=== PATIENT | female | born 2000 | race Caucasian/White ===

== ENCOUNTER 2023-10-17 07:46 | Outpatient (RCR) | payer OTHER, SELFPAY ==
[2023-10-17 13:55] VITALS: BP 104/64; PULSE 64; TEMP 37.1; O2SAT 100
[2023-10-17] MEDS: RHO(D) IMMUNE GLOBULIN 1,500 UNIT SYRINGE 1500 UNIT IM (14:33)
--- NOTE | 2023-10-17 14:51 | PC.NURSE ---
Released ambulatory, no s/s of reaction noted.
== END 2023-10-26 08:45 | disposition home or self-care (01) ==
LOC: LAB 07:46
PROVIDERS: PCP Internal Medicine; Visit Provider Midwife
DX: O26.893 Other specified pregnancy related conditions, third trimester (principal); Z67.91 Unspecified blood type, Rh negative; Z3A.00 Weeks of gestation of pregnancy not specified
CPT/HCPCS: 36415; 86850; 86900; 86901; 96372; J2790

== ENCOUNTER 2024-01-03 22:43 | Inpatient (IN) | payer OTHER, SELFPAY ==
[2024-01-03 23:10] VITALS: BP 115/80; PULSE 94
[2024-01-04] VITALS (33 sets, daily range): BP systolic 64–136; BP diastolic 27–87; PULSE 58–110; TEMP 36.4–36.9
[2024-01-04 00:23] LABS: Bilirubin Urine NEGATIVE (NEGATIVE); Blood Urine NEGATIVE (NEGATIVE); Clarity Urine CLEAR (CLEAR); Color Urine LT. YELLOW (YELLOW); Glucose Urine UA NEGATIVE (NEGATIVE); Ketones Urine TRACE mg/dL (NEGATIVE); Leukocyte Esterase Urine NEGATIVE (NEGATIVE); Nitrite Urine NEGATIVE (NEGATIVE); Protein Urine NEGATIVE (NEG/TRACE); Specific Gravity Urine 1.025 (1.005-1.025); Urine Microscopic Indicated NO; Urobilinogen Urine 0.2 EU/dL (0.2-1.0); pH Urine 6.5 (5.0-9.0)
[2024-01-04 02:07] LABS: Basophils Absolute Auto 0.1 10^3/uL (0.0-0.1); Basophils Percent Auto 0.3 % (0.2-2.0); Eosinophils Percent Auto 0.2 % (0.9-7.0); Hematocrit 41.7 % (36.0-48.0); Hemoglobin 13.9 g/dL (12.0-16.0); Immature Granulocytes Abs Auto 0.15 10^3/uL (0.00-0.03); Immature Granulocytes Pct Auto 0.8 % (0.0-0.5); Lymphocytes Absolute Auto 3.2 10^3/uL (1.2-3.8); Lymphocytes Percent Auto 16.6 % (20.5-60.0); Mean Corpuscular HGB Conc 33.3 g/dL (29.9-35.2); Mean Corpuscular Hemoglobin 32.4 pg (26.7-34.0); Mean Corpuscular Volume 97.2 fL (81.0-99.0); Mean Platelet Volume 10.3 fL (9.5-13.5); Monocytes Absolute Auto 0.8 10^3/uL (0.3-0.8); Monocytes Percent Auto 4.4 % (1.7-12.0); Neutrophils Percent Auto 77.7 % (43.0-75.0); Platelet Count 284 10^3/uL (150-450); Red Blood Count 4.29 10^6/uL (4.20-5.40); Red Cell Distribution Width 13.9 % (11.0-15.0); White Blood Count 19.2 10^3/uL (4.0-11.0)
[2024-01-04] MEDS: NALBUPHINE HCL 10 MG/ML AMPULE IV (02:19)
[2024-01-04] MEDS: LACTATED RINGER'S SOLUTION 1,000 ML 1000 ML IV (05:35)
[2024-01-04] MEDS: LACTATED RINGER'S SOLUTION 1,000 ML 125 ML IV (06:30)
[2024-01-04] MEDS: ROPIVACAINE HCL/PF 400 MG/200 ML PREMIX 10 MG EPIDURAL (06:37)
[2024-01-04 08:47] LABS: Amphetamine Screen Urine NEGATIVE (NEGATIVE); Barbiturates Screen Urine NEGATIVE (NEGATIVE); Benzodiazepines Screen Urine NEGATIVE (NEGATIVE); Buprenorphine Screen Urine NEGATIVE (NEGATIVE); Cannabinoid Screen Urine NEGATIVE (NEGATIVE); Cocaine Screen Urine NEGATIVE (NEGATIVE); Methadone Screen Urine NEGATIVE (NEGATIVE); Methamphetamines Screen Urine NEGATIVE (NEGATIVE); Opiate Screen Urine NEGATIVE (NEGATIVE); Oxycodone Screen Urine NEGATIVE (NEGATIVE); Phencyclidine Screen Urine NEGATIVE (NEGATIVE); Tricyclic Antidepressant Urine NEGATIVE (NEGATIVE)
--- NOTE | 2024-01-04 08:51 | P.OBHP_ITS ---
OB - H&P: HPI History of Present Illness Chief complaint: CONTRACTIONS 01-09-24 : 1 Para: 0 Gestational age based on last menstrual period: 39.2 History of Present Dating criteria: LMP confirmed by 1st trimester US care: good care Ultrasounds: normal 1st trimester US and normal mid trimester US Labs Blood type: A (-) negative Rubella: immune RPR/VDLR: nonreactive GBS status: negative HBsAG: negative Review of Systems ROS Status of ROS: 10 or more systems reviewed and unremarkable except as noted in history and below Meds Home Medications and Allergies Home Medications ?Medication ?Instructions ?Recorded ?Confirmed ?Type No Known Home Medications 01/04/24 01/04/24 History Allergies Allergy/AdvReac Type Severity Reaction Status Date / Time No Known Drug Allergies Allergy Verified 01/04/24 02:04 Exam Constitutional Vital Signs, click to edit/add: Last Vital Signs Temp 98.1 F 01/04/24 06:00 Pulse 80 01/04/24 08:43 Resp 16 01/04/24 06:00 BP 116/70 01/04/24 08:43 O2 Del Method Room Air 01/04/24 06:00 Common normals: no apparent distress and oriented x3 Exam limitations: altered mental status General appearance: cooperative and comfortable Orientation/consciousness: Yes awake, Yes oriented to person, Yes oriented to place and Yes oriented to time HENMT Common normals: normocephalic Eye Common normals: EOMs intact bilaterally General eye: normal appearance of both eyes Neck & C-Spine Common normals: full ROM and no lymphadenopathy General: normal visual inspection Lymph Lymphatic: no lymphadenopathy noted Chest Common normals: inspection of chest normal Respiratory Common normals: normal respiratory effort Effort & inspection: able to speak in complete sentences Cardio Common normals: regular rate and regular rhythm Rate: regular rate Rhythm: regular rhythm GI Common normals: Normal to inspection, nondistended, normoactive bowel sounds present Inspection: normal to inspection Auscultation: normoactive bowel sounds Percussion: normal to percussion Common normals: no CVA tenderness Back & Pelvis Common normals: no CVA tenderness Thoracic spine/upper back: normal to inspection Extremity Common normals: normal to inspection General: normal exam except as noted Neuro Common normals: oriented x3 Sensorium/orientation: awake, alert and oriented to person Speech: speech normal Psych Common normals: mental status grossly normal Attitude: calm Results Labs Labs: Short CBC 01/04/24 Range/Units 01:51 WBC 19.2 H (4.0-11.0) 10^3/uL Hgb 13.9 (12.0-16.0) g/dL Hct 41.7 (36.0-48.0) % Plt Count 284 (150-450) 10^3/uL Urine 01/03/24 Range/Units 23:00 Urine Color Lt. yellow (YELLOW) Urine Clarity Clear (CLEAR) Urine pH 6.5 (5.0-9.0) Ur Specific [place] 1.025 (1.005-1.025) Urine Protein Negative (NEG/TRACE) mg/dL Urine Glucose (UA) Negative (NEGATIVE) mg/dL OB - A/P Assessment and Plan (1) Term : Urinary Catheter Management Urinary Catheter Management Straight: Cath placed during this visit: yes Urethral indwelling: No Insertion date: 01/04/24 Insertion time: 07:50
[2024-01-04] MEDS: LIDOCAINE VISCOUS 2% 15 ML SOLUTION 5 ML TOPICAL (09:00)
[2024-01-04] MEDS: OXYTOCIN/0.9 % SODIUM CHLORIDE 20 UNITS/1,000 ML PLAST..BAG 125 UNIT IV (09:29)
--- NOTE | 2024-01-04 09:47 | PM.OBPRCVD ---
Procedure Induction method: none Delivery monitor: external FHT and external uterine Route of delivery: Episiotomy Description: none L&D Laceration Description: perineal - 1st degree and labial (bilateral labial repair ) Delivery repair: Vicryl Estimated blood loss (mL): 300 Anesthesia type: Epidural Disposition: floor Infant Gender: female presentation: vertex Placental delivery description: Spontaneous cord description: 3 Vessels heart rate - 1 minute: 100 bpm or Greater respiratory effort - 1 minute: Spontaneous/Strong Cry muscle tone - 1 minute: Active Movement reflex response - 1 minute: Prompt Response color - 1 minute: Bluish Hands or Feet total score - 1 minute: 9 heart rate - 5 minute: 100 bpm or Greater respiratory effort - 5 minute: Spontaneous/Strong Cry muscle tone - 5 minute: Active Movement reflex response - 5 minute: Prompt Response color - 5 minute: Bluish Hands or Feet total score - 5 minute: 9
[2024-01-04 10:15] LABS: Hematocrit 36.4 % (36.0-48.0); Hemoglobin 12.3 g/dL (12.0-16.0); Mean Corpuscular HGB Conc 33.8 g/dL (29.9-35.2); Mean Corpuscular Hemoglobin 32.6 pg (26.7-34.0); Mean Corpuscular Volume 96.6 fL (81.0-99.0); Platelet Count 255 10^3/uL (150-450); Red Blood Count 3.77 10^6/uL (4.20-5.40); Red Cell Distribution Width 13.7 % (11.0-15.0); White Blood Count 23.5 10^3/uL (4.0-11.0)
[2024-01-04] MEDS: BENZOCAINE/MENTHOL 85 GRAM SPRAY BOTTLE 1 APPLIC TOPICAL (11:41)
[2024-01-04] MEDS: GLYCERIN/WITCH HAZEL PADS 1 PAD TOPICAL (11:41)
[2024-01-04] MEDS: IBUPROFEN 400 MG TABLET 800 MG PO ×2 (11:41→19:34)
[2024-01-04 14:31] LABS: Band Neutrophils Absolute 0.5 10^3/uL (0.0-0.3); Metamyelocytes Absolute Manual 0.23; Monocytes Absolute Manual 0.94 10^3/uL (0.30-0.80); Segmented Neut Absolute Manual 21.15 10^3/uL (1.4-6.5)
[2024-01-05] MEDS: IBUPROFEN 400 MG TABLET 800 MG PO (05:46)
[2024-01-05 07:45] VITALS: TEMP 36.4
[2024-01-05 08:19] VITALS: BP 113/57; PULSE 77
--- NOTE | 2024-01-05 09:10 | PM.OBPN ---
OB - PN: Subj Subjective Patient comments: no complaints and pain well controlled [place] status: doing well Exam Constitutional Vital Signs, click to edit/add: Last Vital Signs Temp 97.5 F L 01/04/24 23:29 Pulse 77 01/05/24 08:19 Resp 16 01/04/24 23:29 BP 113/57 01/05/24 08:19 O2 Del Method Room Air 01/04/24 23:29 Documenting provider has reviewed patient's vital signs: yes Common normals: no apparent distress Respiratory Common normals: normal respiratory effort and clear to auscultation bilaterally Cardio Common normals: regular rate and regular rhythm GI Common normals: Normal to inspection, nondistended, normoactive bowel sounds present Extremity Common normals: normal to inspection and no clubbing, cyanosis or edema Results Labs Labs: Short CBC 01/04/24 Range/Units 10:05 WBC 23.5 H (4.0-11.0) 10^3/uL Hgb 12.3 (12.0-16.0) g/dL Hct 36.4 (36.0-48.0) % Plt Count 255 (150-450) 10^3/uL Urinary Catheter Management Urinary Catheter Management Straight: Cath placed during this visit: yes Urethral indwelling: No Insertion date: 01/04/24 Insertion time: 07:50 OB - PN: A/P Assessment and Plan (1) Term : Plan - Vaginal Delivery day: 1 Plan: routine care, discharge home and follow up 6 weeks Time Spent with Patient Time: Total time spent is greater than 50% in coordination of care (as documented) at patient's floor/unit and/or counseling patient: Total time spent with greater than 50% in coordination of care (as documented) at patient's floor/unit and/or counseling patient: less than 15 minutes
[2024-01-05] MEDS: DOCUSATE SODIUM 100 MG CAPSULE PO (10:06)
== END 2024-01-05 14:05 | disposition home or self-care (01) | DRG 807 ==
PROVIDERS: Admitting Provider Midwife; PCP Internal Medicine; Visit Provider Midwife
DX: O26.893 Other specified pregnancy related conditions, third trimester (principal); Z37.0 Single live birth; Z67.11 Type A blood, Rh negative; O70.0 First degree perineal laceration during delivery; Z3A.39 39 weeks gestation of pregnancy
CPT/HCPCS: 36415; 51701; 59025; 59050; 59410; 80307; 81003; 85007; 85025; 85027; 86850; 86900; 86901; 96374; 96375; J2300; J2795

== ENCOUNTER 2024-01-07 08:20 | Outpatient (OUT) | payer OTHER, SELFPAY ==
--- OUTSIDE RECORDS SUMMARY | 2024-01-07 08:25 | XMS_ITS | CCD ---
Author Organization [facility] Care Team Providers Care Finance Advisor Name Role Phone JAHAIRA, REGIS Unavailable Unavailable JAHAIRA, REGIS Unavailable Unavailable TJ SANDERS Unavailable Unavailable JAHAIRA, REGIS Unavailable Unavailable Tj Sanders MD Primary Care Provider jT Sanders MD Primary Care Provider [phone] TJ SANDERS Attending Unavailable TJ SANDERS Referring Unavailable TJ SANDERS Primary Care Unavailable FLORO, NIKKY L Attending Unavailable FLORO, NIKKY L Referring Unavailable FLORO, NIKKY L Attending Unavailable FLORO, NIKKY L Attending Unavailable FLORO, NIKKY L Referring Unavailable FLORO, NIKKY L Attending Unavailable FLORO, NIKKY L Attending Unavailable FLORO, NIKKY L Attending Unavailable FLORO, NIKKY L Referring Unavailable FLORO, NIKKY L Attending Unavailable FLORO, NIKKY L Attending Unavailable FLORO, NIKKY L Attending Unavailable FLORO, NIKKY L Attending Unavailable FLORO, NIKKY L Referring Unavailable FLORO, NIKKY L Attending Unavailable FLORO, NIKKY L Attending Unavailable FLORO, NIKKY L Referring Unavailable Medications Current Medications Medication Drug Class(es) Dates Sig (Normalized) Sig (Original) aluminum chloride 200 mg/ml topical solution (2 sources) Start: 01-11-2023 End: 06-22-2023 aluminum chloride (DRYSOL) 20 % external solution Indications: Hyperhidrosis Apply 1 Application topically nightly. 60 mL 1 06/22/2023 Active MV & Min w/FA-DHA ( Gummies) 0.18-25 MG chewable tablet (3 sources) MV & Mi n w/FA-DHA ( Gummies) 0.18-25 MG chewable tablet Chew 0 Active Problems Active Problems Problem Classification Problem Date Documented Da te Episodic/Chronic Other and delivery including normal (2 sources) test positive; Translations: [Encounter for test, result positive] 05-31-2023 Episodic Other skin disorders (1 source) Hyperhidrosis; Translations: [Generalized hyperhidrosis] 06-22-2023 Episodic Other skin disorders (1 source) Other hypertrophic disorders of the skin; Translations: [Other hypertrophic disorders of the skin] Onset: 10-26-2023 Episodic Unclassified (1 source) moles on right side of neck Onset: 10-26-2023 Past or Other Problems Problem Classification Problem Date Documented Da te Episodic/Chronic Allergic reactions (4 sources) Urticaria, unspecified; Translations: [Allergic urticaria] Onset: 12-25-2016 Episodic Mood disorders (1 source) Mood disorders Onset: 01-11-2023 01-11-2023 NEGATED: Highlighted row has been ruled out!Unclassified (1 source) No known active problems 12-21-2020 Results Test Name Value Interpretation Reference Range Facility US OB FOLLOW UP TRANSABDOMIN AL APPROACHon 01-01-2024 US OB FOLLOW UP TRANSABDOMINAL APPROACH TITLE OF EXAM: US - US OB FOLLOWUP PER FETUS REASON FOR EXAM: Growth TECHNIQUE: Grayscale, color, and M-mode Doppler sonographic evaluation of the fetus and maternal pelvis. COMPARISON: None. FINDINGS: LMP: 04/05/2023 Age by LMP: 38 weeks, 5 days Estimated date of delivery by LMP: 01/10/2024 Single live intrauterine gestation in cephalic position measuring 37 weeks, 1 day by ultrasound. No appreciable sonographic abnormality of the visualized structures. An anatomic survey was not performed. heart rate: 136 bpm Biparietal diameter: 9.2 cm, 37 weeks, 2 days (41%) Abdominal circumference: 32 cm, 35 weeks, 6 days (6%) Head circumference: 33.4 cm, 38 weeks, 2 days (24.5%) Femur length: 7.1 cm, 36 weeks, 4 days (9 %). Estimated weight: 3011 g (6 pounds, 10 ounces) (20.6%) Amniotic fluid index 10.6 cm, 26% Posteriorly positioned, left-sided placenta without evidence of previa on the provided images. Placental grade 3. Cervical length 4.3 cm. IMPRESSION: 1. Single live intrauterine gestation sonographically measuring 37 weeks, 1 day. 2. No appreciable abnormality of the evaluated and maternal structures. Findings as detailed. DICTATED ON: 01/01/2024 4:21 PM This report has been electronically signed and approved by the interpreting radiologist. Electronically Signed Trev Durand M.D. 2024-01-01 16:28:17 Normal Not Available US OB FOLLOW UP TRANSABDOMIN AL APPROACHon 10-30-2023 US OB FOLLOW UP TRANSABDOMINAL APPROACH FINDINGS: A single, live intrauterine is present with normal cardiac rate of 143 beats per minute. Normal activity and amniotic fluid volume. Amniotic fluid index is 14 cm. Morphology is grossly normal. The cervix is long and closed, 4.9 cm. The placenta is fundal, not associated with the cervical os. The current sonographic age is 29 weeks and 4 days, based on the following measurements: BPD 7.5 cm (30 weeks, 0 days) Head Circumference 27.2 cm (29 weeks, 5 days) Abdominal Circumference 24.9 cm (29 weeks, 1 day) Femur Length 5.5 cm (29 weeks, 1 day) Presentation Cephalic Placenta Fundal Grade I Weight (g) by Percentile 20.1 % * These measurements result in an estimated date of delivery of January 11, 2024. The current estimated weight is 1361 grams (3 pounds, 0 ounces). IMPRESSION: Single, live intrauterine , current sonographic age of 29 weeks and 4 days, with an estimated date of delivery of January 11, 2024 * Estimated Weight (g) by Percentile is based upon an accurate estimated age based on last menstrual period. TRANSCRIBED BY: ELECTRONICALLY SIGNED BY: Logan Hayward MD Normal Not Available US OB 14+ WEEKS ANATOMY SCAN on 08-23-2023 US OB 14+ WEEKS ANATOMY SCAN FINDINGS: Single live intrauterine . heart rate 147 bpm. somatic movement identified. Cephalic position. Posterior grade 1 placenta. ADONIS 13.46 cm. Cervical length 3.2 cm. Lateral ventricles, posterior fossa, four-chamber heart, stomach, kidneys, three-vessel cord and cord insertion, urinary bladder, long bones, diaphragm, cervical, thoracic, and lumbar spine identified. Estimated sonographic gestational age 19 weeks, 6 days. Gestational age by dates 20 weeks, 1 day. Sonographic estimated date of delivery January 11, 2024. Estimated weight 321 g (33.4% by LMP percentile). BPD 4.51 cm. HC 17.62 cm. FL 3.10 cm. AC 14.92 cm. IMPRESSION: Single live intrauterine with estimated sonographic gestational age 19 weeks, 6 days. Estimated weight 321 g. ELECTRONICALLY SIGNED BY: Angel Luis Atwood MD Normal Not Available Bacteria identified Cx Nom ( U)on 06-02-2023 Appearance (U) Adequate [facility] Bacteria identified Cx Nom (Isol) SEE NOTE [facility] Comment on above: No Growth Internal identifier for Provider [id number] [facility] Specimen source Nom (Unsp spec) URINE [facility] STATUS FINAL [facility] CBC panel Auto (Bld)on 06-02 Erythrocyte distribution width (RBC) [Ratio] 12.3 % 11.0 - 15.0 % [facility] Hematocrit (Bld) [Volume fraction] 38.4 % 35.0 - 45.0 % [facility] Hemoglobin (Bld) [Mass/Vol] 12.9 g/dL 11.7 - 15.5 g/dL [facility] Interpretation and review of laboratory results Abnormal [facility] MCH (RBC) [Entitic mass] 31.9 pg 27. 0 - 33.0 pg [facility] MCHC (RBC) [Mass/Vol] 33.6 g/dL 32.0 - 36.0 g/dL [facility] MCV (RBC) [Entitic vol] 95.0 fL 80.0 - 100.0 fL [facility] Platelet mean volume (Bld) [Entitic vol] 10.1 fL 7.5 - 12.5 fL [facility] Platelets (Bld) [#/Vol] 300 10*3/uL [facility] RBC (Bld) [#/Vol] 4.04 10*6/uL [facility] WBC (Bld) [#/Vol] 12.4 10*3/uL High [facility] Laboratory - Blood bankon ABO group Nom (Bld) A [facility] Blood group antibody screen Ql Detected [facility] Comment on above: Reference range No antibodies detected This assay is a screening test for the detection of red blood cell antibodies. The test is not to be used for pretransfusion screening or for the medical management of an alloimmunized . Rh Nom (Bld) Negative [facility] Comment on above: For additional information, please refer to http://education.Bottle/faq/TZM897 (This link is being provided for informational/ educational purposes only.) Laboratory - Chemistry and C hemistry - challengeon 06-02-2023 TSH Qn 0.65 m[IU]/L mIU/L [facility] Comment on above: Reference Range > or = 20 Years 0.40-4.50 Ranges First trimester 0.26-2.66 Second trimester 0.55-2.73 Third trimester 0.43-2.91 Laboratory - Drug toxicology on 06-02-2023 8-Iletjipxmz-4,5-Dimethy l-3,3-Diphenylpyrrolidin e (EDDP) Ql (U) Negative NINF - 100 ng/mL [facility] Amphetamines Ql (U) Negative NINF - 5 00 ng/mL [facility] Barbiturates Ql (U) Negative NINF - 3 00 ng/mL [facility] Benzodiazepines Ql (U) Negative NINF - 100 ng/mL [facility] Benzoylecgonine Ql (U) Negative NINF - 150 ng/mL [facility] Opiates Ql (U) Negative NINF - 100 ng/mL [facility] oxyCODONE Ql (U) Negative NINF - 100 ng/mL [facility] Phencyclidine Ql (U) Negative NINF - 25 ng/mL [facility] Tetrahydrocannabinol (U) [Mass/Vol] 238 ng/mL High NINF - 5 ng/mL [facility] Comment on above: See Note 1 Tetrahydrocannabinol Screen method >20 ng/mL Ql (U) Positive Abnormal NINF - 20 ng/mL [facility] Comment on above: Marijuana Metabolite detected is consistent with exposure to Marijuana (THC) and/or hemp derived products. Some jurisdictions do not include hemp within the definition of Marijuana. Laboratory - Hematology and Cell countson 06-02-2023 HbA1c (Bld) [Mass fraction] 5.3 % [facility] Comment on above: For the purpose of s creening for the presence of diabetes: <5.7% Consistent with the absence of diabetes 5.7-6.4% Consistent with increased risk for diabetes (prediabetes) > or =6.5% Consistent with diabetes This assay result is consistent with a decreased risk of diabetes. Currently, no consensus exists regarding use of hemoglobin A1c for diagnosis of diabetes in children. According to [place] [employer] (ADA) guidelines, hemoglobin A1c <7.0% represents optimal control in non- diabetic patients. Different metrics may apply to specific patient populations. Standards of Medical Care in Diabetes(ADA). Laboratory - Microbiology an d Antimicrobial susceptibilityon 06-02-2023 HBV surface Ag IA Ql Non-Reactive NON-REACTIVE [facility] Comment on above: For additional information, please refer to http://School of Rock.RVX/faq/QCT646 (This link is being provided for informational/ educational purposes only.) HCV Ab IA Ql Non-Reactive NON-REACTIVE [facility] Comment on above: HCV antibody was non-reactive. There is no laboratory evidence of HCV infection. In most cases, no further action is required. However, if recent HCV exposure is suspected, a test for HCV RNA (test code 37711) is suggested. For additional information please refer to http://education.RVX/faq/VAR11y6 (This link is being provided for informational/ educational purposes only.) HIV 1+2 Ab+HIV1 p24 Ag IA Ql Non-Reactive NON-REACTIVE [facility] Comment on above: HIV-1 antigen and HI V-1/HIV-2 antibodies were not detected. There is no laboratory evidence of HIV infection. PLEASE NOTE: This information has been disclosed to you from records whose confidentiality may be protected by state law. If your state requires such protection, then the state law prohibits you from making any further disclosure of the information without the specific written consent of the person to whom it pertains, or as otherwise permitted by law. A general authorization for the release of medical or other information is NOT sufficient for this purpose. For additional information please refer to http://School of Rock.RVX/faq/IFQ942 (This link is being provided for informational/ educational purposes only.) The performance of this assay has not been clinically validated in patients less than 2 years old. Reagin Ab RPR Ql (S) Non-Reactive NON-REACTIVE [facility] Rubella virus IgG Qn (S) 4.08 [IU]/mL Index [facility] Comment on above: Index Interpretation ----- <0.90 Not consistent with immunity 0.90-0.99 Equivocal > or = 1.00 Consistent with immunity The presence of rubella IgG antibody suggests immunization or past or current infection with rubella virus. Laboratory - Urinalysison Bacteria LM.HPF (Urine sed) [#/Area] NONE SEEN NONE SEEN /HPF [facility] Epithelial cells.squamous LM.HPF (Urine sed) [#/Area] 6-10 Abnormal < OR = 5 /HPF [facility] Hyaline casts (Urine sed) [#/Area] NONE SEEN NONE SEEN /LPF [facility] RBC LM.HPF (Urine sed) [#/Area] NONE SEEN < OR = 2 /HPF [facility] WBC LM.HPF (Urine sed) [#/Area] NONE SEEN < OR = 5 /HPF [facility] N. gonorrhoeae DNA MAK+probe Ql (Cervical mucus)on 06-02-2023 C. trachomatis rRNA MAK+probe Ql (Unsp spec) Not detected NOT DETECTED [facility] N. gonorrhoeae rRNA MAK+probe Ql (Unsp spec) Not detected NOT DETECTED [facility] No Panel Informationon 06-02 MULTIPLE COLLECTION TIMES FOR SAME TEST TYPE. [employer] Organization Information Site ID: QPT Name: [facility] Address: [address] [place] [address], [address] [place] [id number] Director: George Martinez MD [facility] (ALWAYS MESSAGE) [facility] Comment on above: See Note 2 Note 1 This test was developed and its analytical performance characteristics have been determined by [employer]. It has not been cleared or approved by the FDA. This assay has been validated pursuant to the CLIA regulations and is used for clinical purposes. Note 2 This drug testing is for medical treatment only. Analysis was performed as non-forensic testing and these results should be used only by healthcare providers to render diagnosis or treatment, or to monitor progress of medical conditions. For assistance with interpreting these drug results, please contact a [employer] Toxicology Specialist: [phone] ( ), M-F, 8am-6pm EST. The analytical perfo rmance characteristics of this assay, when used to test SurePath(TM) specimens have been determined by [employer]. The modifications have not been cleared or approved by the FDA. This assay has been validated pursuant to the CLIA regulations and is used for clinical purposes. For additional information, please refer to https://education.RVX/faq/XLR267 (This link is being provided for information/ educational purposes only.) Interpretation and review of laboratory results Abnormal [facility] SPLIT 05/31/2023 FROM [id number] [employer] Organization Information Site ID: QPT Name: [facility] Address: [address] [place] [address], [address] [place] [phone] Director: George Martinez MD [facility] US OB < 14 WEEKS EARLYon US OB < 14 WEEKS EARLY CLINICAL HISTORY: Amenorrhea. Dates from LMP of 8 weeks 1 day COMPARISON: 05/15/2023. TECHNIQUE: Transabdominal and transvaginal ultrasound was performed of the pelvis. RESULT: An approximately 2.7 cm in average dimension gestational sac is present within the central aspect of the uterine body/fundus, without significant surrounding subchorionic hemorrhage. [place] rump length measures 1.58, which corresponds to 8 weeks 0 days. Yolk sac present. The estimated date of delivery by measurements is: 01/10/2024. The estimated date of delivery by LMP is: 01/09/2024. cardiac activity measures approximately 151, without visualized arrhythmia. The cervix appears closed, measuring approximately 4.0 cm. There is no significant free fluid, or other findings of concern. The uterus measures: 10.1 x 6.9 x 5.2 cm. The right ovary measures: 2.9 x 2.1 x 1.8 cm. The left ovary is not visualized secondary to bowel gas. IMPRESSION: SINGLE LIVE INTRAUTERINE CORRESPONDING TO 8 weeks 0 days NO OTHER FINDINGS OF CONCERN. ELECTRONICALLY SIGNED BY: Shamar Mobley MD Normal Not Available US OB < 14 WEEKS EARLYon US OB < 14 WEEKS EARLY US OB < 14 WEEKS EARLY : 05/15/2023 9:45 AM CLINICAL HISTORY: . COMPARISON: None available. TECHNIQUE: ROUTINE FINDINGS: The uterus measures 8.3 x 4.7 x 4.1 cm. A gestational sac contains a yolk sac in the endometrial cavity in the fundal region that measures 0.27 cm.. No pole or heart rate visualized on this examination. The cervix measures 3.7 cm A hypoechoic area is seen in the uterus adjacent to the gestational sac that measures 1.02 x 1.2 x 0.4 cm. The right ovary is not visualized. The left ovary measures 2.6 x 2.7 x 2.4 cm. It contains an anechoic area that measures 0.8 x 1.1 x 0.6 cm. This is a probable corpus luteal cyst. IMPRESSION: A gestational sac is seen with a yolk sac but no pole or heart rate visualized. This is thought to be too early for detection. Recommend follow-up in 10 to 14 days. Subchorionic hemorrhage is seen adjacent to the gestational sac. ELECTRONICALLY SIGNED BY: Estuardo Ortiz, DO Normal Not Available Vital Signs Date Time Vital Sign Value Performing Clinician Faci lity 05-31-2023 09:45-0500 Body mass index (BMI) [Ratio] 21.43 kg/m2 Nikky Candio [facility] Work Phone: [facility] 05-31-2023 09:45-0500 Body weight 54.88 kg Nikkymykel Christophero [facility] Work Phone: [facility] 05-31-2023 09:45-0500 Diastolic blood pressure 70 mm[Hg] Nikky Candio [facility] Work Phone: [facility] 05-31-2023 09:45-0500 Systolic blood pressure 120 mm[Hg] Nikky Floro [facility] Work Phone: [facility] Encounters Encounter Date Encounter Type Care Provider Facility Start: 01-02-2024 ambulatory NIKKY L FLORO Not [facility] Start: 01-01-2024 ambulatory NIKKY L FLORO Not [facility] Start: 12-27-2023 End: 12-27-2023 ambulatory NIKKY L FLORO Not Available Start: 12-17-2023 End: 12-17-2023 ambulatory NIKKY L FLORO Not Available Start: 12-04-2023 End: 12-04-2023 ambulatory NIKKY L FLORO Not Available Start: 11-15-2023 End: 11-15-2023 ambulatory NIKKY L FLORO Not Available Start: 10-30-2023 End: 10-30-2023 ambulatory NIKKY L FLORO Not Available Start: 10-26-2023 End: 10-26-2023 ambulatory [facility] Start: 10-17-2023 End: 10-17-2023 ambulatory NIKKY L FLORO Not Available Start: 09-27-2023 End: 09-27-2023 ambulatory NIKKY L FLORO Not Available Start: 08-30-2023 End: 08-30-2023 ambulatory NIKKY L FLORO Not Available Start: 08-23-2023 End: 08-23-2023 ambulatory NIKKY L FLORO Not Available Start: 08-01-2023 End: 08-01-2023 ambulatory NIKKY L FLORO Not Available Start: 07-02-2023 Telephone encounter Nikky L Floro CNM Work Phone: [facility] Start: 06-28-2023 End: 06-28-2023 ambulatory NIKKY L FLORO Not Available Start: 06-22-2023 Refill Tiesha Pearson [employer]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 [facility] Comment on above: Hyperhidrosis Start: 05-31-2023 End: 05-31-2023 ambulatory NIKKY L FLORO Not Available Start: 05-31-2023 End: 05-31-2023 Initial care visit Nikky L Floro CNM Work Phone: [facility] Comment on above: GA: 8w1d Start: 05-15-2023 End: 05-15-2023 ambulatory NIKKY L FLORO Not Available Start: 12-25-2016 End: 12-25-2016 [facility]: Procedures Date Procedure Procedure Detail Performing Clinician Start: 05-31-2023 Culture bacterial quanttative colony count urine Nikky L Floro CNM Work Phone: Start: 05-31-2023 DRUG TOX MONITORIGN 6 W/ CONF,URINE Nikky L Floro CNM Work Phone: Start: 05-31-2023 URINALYSIS MICROSCOPIC Nikky Humphrey CN Work Phone: Start: 05-31-2023 Antibody screen rbc each serum technique Nikky Humphrey CN Work Phone: Start: 05-31-2023 Hemoglobin glycosyla emma a1c Nikky Humphrey [facility] Work Phone: Start: 05-31-2023 Iaad ia hepatitis b surface antigen Nikky Humphrey [facility] Work Phone: Start: 05-31-2023 TSH W/REFLEX TO FT4 Shakira mykel Humphrey CN Work Phone: Start: 01-11-2023 Adult depression scr eening assessment Tiesha Pearson CMA Plan of Treatment Date Care Activity Detail Author Start: 01-12-2024 Adult BMI Screening Adult BMI Screen ing [facility] Start: 01-12-2024 Depression Screening Depression Scre ening [facility] Start: 01-12-2024 Tobacco Screening Tobacco Screening [facility] Start: 09-06-2023 DTaP,Tdap and Td Vaccines (7 - Td or Tdap) DTaP,Tdap and Td Vaccines (7 - Td or Tdap) [facility] Start: 09-05-2023 End: 09-05-2023 Patient encounter procedure 09/05/2023 11:00 AM EDT Office Visit [facility] [address] [facility] [address] [place] [id number] Theo Orta, DO [address] [facility] [place] [address] [facility] Start: 07-26-2023 End: 07-26-2023 Patient encounter procedure 07/26/2023 8:30 AM EST Routine [facility] [address] [place] [address] Nikky Humphrey CNM [address] [place] [address] [facility] Start: 05-31-2023 End: 05-31-2024 Neisseria gonorrhoeae DNA [Presence] in Cervical mucus by MAK with probe detection C. trachomatis / N. gonorrhoeae, DNA probe Lab Routine examination or test, positive result Expected: 05/31/2023 (Approximate), Expires: 05/31/2024 [facility] Work Phone: Comment on above: Expected: 05/31/2023 (Approximate), Expires: 05/31/2024 Start: 01-26-2023 Influenza vaccination Influenza Vacc ine [facility] Start: 04-29-2022 Screening for Chlamy diana trachomatis Chlamydia Screening [facility] Start: 2022 Screening for malign ant neoplasm of cervix Pap Smear [facility] Immunizations Immunization Date Immunization Notes Care Provider Fa cility 04-29-2021 RHO(D) immune globul in- IV or IM Tiesha Pearson [facility] 09-05-2013 tetanus toxoid, redu ziggy diphtheria toxoid, and acellular pertussis vaccine, adsorbed Tiesha Pearson [facility] 10-31-2006 diphtheria, tetanus toxoids and acellular pertussis vaccine Tiesha Pearson [facility] 10-31-2006 poliovirus vaccine, inactivated Tiesha Pearson [facility] 05-05-2002 diphtheria, tetanus toxoids and acellular pertussis vaccine Tiesha Pearson [facility] 05-05-2002 haemophilus influenz ae type b vaccine, conjugate unspecified formulation Tiesha Pearson [facility] 05-05-2002 measles, mumps and rubella virus vaccine Tiesha Pearson [facility] 01-20-2002 varicella virus vaccine Pina Pearson [facility] 2002 measles, mumps and rubella virus vaccine Tieshaerasmo Pearson [facility] 2002 poliovirus vaccine, inactivated Tiesha Pearson [facility] 2001 diphtheria, tetanus toxoids and acellular pertussis vaccine Tiehsa Pearson [facility] 2001 haemophilus influenz ae type b vaccine, conjugate unspecified formulation Tieshawillie Pearson [facility] 2001 poliovirus vaccine, inactivated Tiesha Pearson [facility] 2001 diphtheria, tetanus toxoids and acellular pertussis vaccine Tieshawillie Pearson [facility] 2001 haemophilus influenz ae type b vaccine, conjugate unspecified formulation Tiesha Pearson [facility] 2001 hepatitis B vaccine, adult dosage Tiesha Pearson [facility] 2001 pneumococcal conjuga te vaccine, 7 valent Tiesha Pearson [facility] 2001 poliovirus vaccine, inactivated Tiesha Pearson [facility] 2001 diphtheria, tetanus toxoids and acellular pertussis vaccine Tieshawillie Pearson [facility] 2001 haemophilus influenz ae type b vaccine, conjugate unspecified formulation Tieshawillie Pearson [facility] 2001 hepatitis B vaccine, adult dosage Tieshawillie Pearson [facility] 2001 pneumococcal conjuga te vaccine, 7 valent Tiesha Pearson [facility] 2001 poliovirus vaccine, inactivated Tiesha Pearson [facility] 2001 hepatitis B vaccine, adult dosage Tiesha [facility] Payers Date Payer Category Payer Unknown [employer] [id number] 2023-Present [phone] [address] [address] [place] [address] [id number]. [id number] 2022 Private Health Insurance [facility] [employer] [id number] 2022-Present [phone] [address] [address] [place] [address] [id number]. [id number] 2022 Unknown [id number] 2001 Unknown [id number] 2.16.840.1.179637.3.579.2. 1286 2001 Unknown [id number] 2.16.840.1.588861.3.579.2. 1258 2001 Unknown [id number] 2.16.840.1.172663.3.579.2. 1258 2001 Unknown [id number] 2.16.840.1.776713.3.579.2. 1258 2001 Unknown [id number] 2.16.840.1.036314.3.579.2. 1258 2001 Unknown [id number] 2.16.840.1.832374.3.579.2. 1258 2001 Unknown [id number] 2.16.840.1.661444.3.579.2. 1258 2001 Unknown [id number] 2.16.840.1.625225.3.579.2. 1258 2001 Unknown [id number] 2.16.840.1.003362.3.579.2. 1258 2001 Unknown [id number] 2.16.840.1.984228.3.579.2. 1258 2001 Unknown [id number] 2.16.840.1.679685.3.579.2. 1258 2001 Unknown [id number] 2.16.840.1.226851.3.579.2. 1258 2001 Unknown [id number] 2.16.840.1.028686.3.579.2. 1258 2001 Unknown [id number] 2.16.840.1.382182.3.579.2. 1258 2001 Unknown [id number] 2.16.840.1.378158.3.579.2. 1258 2001 Unknown [id number] 2.16.840.1.593894.3.579.2. 1258 2001 Unknown [id number] 2.16.840.1.843448.3.579.2. 1259 2001 Unknown [id number] 2.16.840.1.097708.3.579.2. 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) [facility] Start: 01-11-2023 End: 05-31-2023 History of Social function [facility] Start: 01-11-2023 End: 05-31-2023 Tobacco use panel [facility] Adolescent depressio n screening assessment 0 [facility] Start: 2001 Sex Assigned At Not on file P [facility] Start: 05-31-2023 Alcohol intake Lifetime non-d dave (finding) [facility] Start: 05-14-2023 Alcohol Comment caffeine: none [facility] Start: 04-18-2023 [facility] Telephone encounter Note 07-11-2023 Telephone Encounter - Zoie Mathews - 07/11/2023 7:05 AM EST Note Date & Type Note Facility 07-11-2023 Telephone encount er Note Initial visit: $ 35.00 Office visit Co-pay: $ 35.00 PNC: First 44% covered 100% the other 65% would be subject to the deductible HOSPITALIZATION/DELIVERY: 80% After Deductible Deductible 800 met 441.32 OBPP- Total 754. Monthly 108 [facility] Note 07-11-2023 Telephone Encounter - Zoie Mathews - 07/11/2023 7:05 AM EST Note Date & Type Note Facility 07-11-2023 Miscellaneous Notes Formattin g of this note might be different from the original. Initial visit: $ 35.00 Office visit Co-pay: $ 35.00 PNC: First 44% covered 100% the other 65% would be subject to the deductible HOSPITALIZATION/DELIVERY: 80% After Deductible Deductible 800 met 441.32 OBPP- Total 754. Monthly 108 documented in this encounter [facility] Note 06-22-2023 Telephone Encounter - Tiesha Pearson CMA - 06/22/2023 1:02 PM EST Note Date & Type Note Facility 06-22-2023 Miscellaneous Notes Formattin g of this note might be different from the original. Refill request documented in this encounter [facility] Telephone encounter Note 06-22-2023 Telephone Encounter - Tiesha Pearson CMA - 06/22/2023 1:02 PM EST Note Date & Type Note Facility 06-22-2023 Telephone encount er Note Refill request [facility] History of Present illness Narrative 05-31-2023 Nikky Humphrey CNM - 05/31/2023 9:30 AM EST Note Date & Type Note Facility 05-31-2023 History of Presen t illness Narrative Subjective Calvin Miguel is a 23 y.o. at 8w1d with a working estimated date of delivery of 01/09/2024, by Last Menstrual Period who presents for an initial visit. This is planned. Her is complicated by: Rh negative, will need rhogam OB History Para Term AB Living 2 1 SAB IAB Ectopic Multiple Live Births 1 # Outcome Date GA Lbr Cristiano/2nd Weight Sex Delivery Anes PTL Lv 2 Current 1 Ectopic Gynecology History The following portions of the chart were reviewed this encounter and updated as appropriate: Review of Systems Negative Objective Physical Exam weight: 121 lb Expected Total Weight Gain: 25 lb-35 lb Pregravid BMI: 21.44 Labs Assessment/Plan Diagnoses and all orders for this visit: examination or test, positive result - Hepatitis B surface antigen - Rubella antibody, IgG - CBC - Antibody screen - RPR - Hemoglobin A1c - TSH W/REFLEX TO FT4; Future - HIV-1 and HIV-2 antibodies - ABO/Rh - DRUG TOX MONITORIGN 6 W/ CONF,URINE; Future - Hepatitis C antibody - C. trachomatis / N. gonorrhoeae, DNA probe; Future - Urine culture; Future - URINALYSIS MICROSCOPIC; Future - C. trachomatis / N. gonorrhoeae, DNA probe Blue education folder given. Patient educated on safe medication list. Genetic testing information given. Discussed the do's and don'ts in the blue folder. We discussed labs and what we draw and what we are testing for. Patient is also informed that we do a urine drug test. Patient also given office phone number and [facility] number to call in case of an emergency or after hours needs. PVU and all questions answered. documented in this encounter [facility] Evaluation note Note Date & Type Note Facility Evaluation note Diagnosis Hyperhidrosis Generalized hyperhidrosis documented in this encounter [facility] Evaluation note Note Date & Type Note Facility Evaluation note Diagnosis examination or test, positive result- Primary documented in this encounter [facility] Healthcare Instructions Note Date & Type Note Facility Instructions Not on filedocumented in this en counter [facility] Purpose Family History No Family History Records FoundNo Family History Records FoundNo Family History Records Found Advance Directives No Advanced Directives Records FoundNo Advanced Directives Records FoundNo Advanced Directives Records Found Reason for Referral Specialty Diagnoses / Procedures Referred By El tellez Referred To Contact Obstetrics and Gynecology Diagnoses examination or test, positive result Procedures [place] OFFICE/OUTPATIENT NEW HIGH MDM 60 MINUTES Nikky Humphrey CNM [address] [place] [address] Nikky Humphrey CNM [address] [place] [address] Referral ID Status Reason Start Date Expiration Date Visits Requested Visits Authorized [id number] Pending Review Specialty Services Required 07/06/2023 01/02/2024 1 1 Additional Source Comments INFORMATION SOURCE (unrecogn ized section and content) DATE CREATED AUTHOR 11/21/2017 [facility] DATE CREATED AUTHOR AUTHOR'S ORGANIZ ATION 10/27/2023 [facility] DATE CREATED AUTHOR AUTHOR'S ORGANIZ ATION 01/04/2024 [facility] EPIC Reason for Visit (unrecogniz ed section and content) Reason Onset Date Comments Med Refill 06/22/2023 Reason Comments Initial Visit Care Teams (unrecognized sec tion and content) Finance Advisor Relationship Specialty Start Date End Date Tj Sanders MD [address] [place] [address], [address] [place], [place] [id number] PCP - General Pediatrics 11/05/16 Finance Advisor Relationship Specialty Start Date End Date Tj Sanders MD [address] [place] [address], [address] [place], [place] [id number] PCP - General Family Medicine 05/31/23 Finance Advisor Relationship Specialty Start Date End Date Tj Sanders MD [address] [place] [address], [address] [place], [place] [id number] PCP - General Family Medicine 05/31/23 FOR RECORDS PERTAINING TO PATIENTS WHO ARE OR HAVE BEEN ENROLLED IN A CHEMICAL DEPENDENCY/SUBSTANCEABUSE PROGRAM, SOME INFORMATION MAY BE OMITTED. This clinical summary was aggregated from multiple sources. Caution should be exercised in using it in the provision of clinical care. This summary normalizes information from multiple sources, and as a consequence, information in this document may materially change the coding, format and clinical context of patient data. In addition, data may be omitted in some cases. CLINICAL DECISIONS SHOULD BE BASED ON THE PRIMARY CLINICAL RECORDS. [employer] provides no warranty or guarantee of the accuracy or completeness of information in this document.
--- NOTE | 2024-01-07 13:25 | PC.NURSE ---
Calvin and 3 day old daughter arrive for follow up. Parents signs paternity affidavit as needed. Parents deny concerns or complaints. Calvin with VSS and assessment WNL. Breasts slightly tender, given handout drying up milk and reviewed. No concerns offered, states doing well. Infant awake and alert. VSS and assessment WNL. Parents report 5-6 wet and stool diapers in last 24 hours. Infant feeds well, has hiccups with each feed. Demo of slow paced bottle feeding given with parents verbalizing understanding. Discussed feeding every 2-2.5 hours with 1 oz per feed instead of letting baby wait 4 hours and trying to give her 2 full oz. Aware to increase amount as infant demands. No further concerns voiced. Family home at this time, aware to keep next appointment with PCP for baby.
[2024-01-07 13:28] VITALS: BP 118/80; PULSE 77; TEMP 36.6; O2SAT 97
== END 2024-01-07 13:31 | disposition home or self-care (01) ==
LOC: FBCO 08:21
PROVIDERS: PCP Internal Medicine; Visit Provider Midwife
DX: Z39.2 Encounter for routine postpartum follow-up (principal)